=== PATIENT | male | born 1970 | race Caucasian/White ===

== ENCOUNTER 2024-01-15 09:08 | Day surgery (SDC) | payer OTHER ==
[2024-01-10 12:24] LABS: BASOPHILS # (AUTO) 0.1 X10'3 (0-0.2); EOSINOPHILS # (AUTO) 0.1 X10'3 (0-0.9); EOSINOPHILS % (AUTO) 2.4 % (0-6); LYMPHOCYTES # (AUTO) 1.4 X10'3 (1.1-4.8); LYMPHOCYTES % (AUTO) 22.6 % (21-51); MEAN CORPUSCULAR HEMOGLOBIN 24.4 PG (27.0-31.0); MEAN CORPUSCULAR HGB CONC 31.6 g/dL (33.0-36.5); MEAN CORPUSCULAR VOLUME 77.2 FL (78-98); MEAN PLATELET VOLUME 8.8 FL (7.4-10.4); MONOCYTES # (AUTO) 0.8 X10'3 (0-0.9); MONOCYTES % (AUTO) 12.3 % (2-12); NEUTROPHILS # (AUTO) 3.9 X10'3 (1.8-7.7); NEUTROPHILS % (AUTO) 61.7 % (42-75); PRE OP HEMATOCRIT 46.3 % (42.0-52.0); PRE OP HEMOGLOBIN 14.6 g/dL (14.0-17.9); PRE OP PLATELET COUNT 209 X10'3 (140-440); PRE OP WHITE BLOOD COUNT 6.3 10'3 (4.8-10.8); RED CELL DISTRIBUTION WIDTH 17.8 % (11.5-14.5)
[2024-01-10 12:35] LABS: ALBUMIN 3.7 G/DL (3.4-5.0); ALKALINE PHOSPHATASE 81 IU/L (46-116); BLOOD UREA NITROGEN 14 MG/DL (7-18); BUN/CREATININE RATIO 13.9 (10.0-20.0); CHLORIDE 105 MMOL/L (99-107); CREATININE 1.01 MG/DL (0.60-1.10); PRE OP ALT 36 U/L (30-65); PRE OP ANION GAP 7 (8-16); PRE OP AST 19 U/L (10-37); PRE OP BILIRUB, TOTAL 0.5 MG/DL (0.0-1.0); PRE OP GLUCOSE 111 MG/DL (70-104); PRE OP POTASSIUM 4.1 MMOL/L (3.4-5.1); PRE OP SODIUM 139 MMOL/L (135-145); TOTAL CARBON DIOXIDE 27.2 MMOL/L (24-32); TOTAL PROTEIN 7.5 G/DL (6.4-8.2); eGFR 77 ML/MIN
[~2024-01-15] VITALS: Ht 190.5 cm; Wt 160.8 kg
[2024-01-15] VITALS (8 sets, daily range): BP systolic 108–123; BP diastolic 58–92; PULSE 70–85; RESP 9–20; TEMP 97.6; O2SAT 94–97
[~2024-01-15 09:08] MED LIST: APIX5TAB3 PO; CARI1.5C PO; DESV100T6 PO; DILT-36 PO; LIFI1DRO EACHEYE; TADA5TAB13 PO; TIZA-189 PO; TRAZ-256 PO; VALA100031 PO
[2024-01-15] MEDS ORDERED: proCHLORperazine 10 MG/2 ml inj IV PRN (10:10)
[2024-01-15] MEDS ORDERED: meperidine/PF 25mg/ml syringe IV PRN ×3 (10:10)
[2024-01-15] MEDS ORDERED: ringers solution, lacted 1,000 ML IV SCH (10:10)
[2024-01-15] MEDS ORDERED: ondansetron/PF 4mg/2ml inj IV PRN (10:10)
[2024-01-15] MEDS ORDERED: HYDROmorphone/PF 0.2 MG/ML SYRINGE IV PRN ×2 (10:10)
[2024-01-15] MEDS ORDERED: acetaminophen 1,000mg/100ml IV 100 ML IV ONE (10:10)
[2024-01-15] MEDS: famotidine 20mg tablet PO ONE (10:14)
[2024-01-15] MEDS: ceFAZolin 3,000 MG in NS 100ml IVPB x1 dose post-op IV ONE (10:15)
[2024-01-15] MEDS: ringers solution, lacted 1,000 ML IV SCH (10:15)
[2024-01-15] MEDS: BUPIVAcaine/PF 2.5mg/ml (0.25%) 10ml vial ONE (10:21)
[2024-01-15] MEDS: LIDOcaine 2% (20mg/ml) 5ml vial ONE (10:21)
[2024-01-15] MEDS ORDERED: fentaNYL/PF 50MCG/1 ML 2ML syringe ONE (10:53)
[2024-01-15] MEDS ORDERED: propofol inj 20 ML IV ONE ×2 (11:01)
[2024-01-15] MEDS ORDERED: midazolam 1 mg/ML 2ml injection ONE (11:01)
== END 2024-01-15 12:10 | disposition home or self-care (01) ==
LOC: PAS 09:08
PROVIDERS: ATTEND Orthopaedic Surgery Hand Surgery
DX: G56.02 Carpal tunnel syndrome, left upper limb (principal); I48.91 Unspecified atrial fibrillation; E66.9 Obesity, unspecified; F41.9 Anxiety disorder, unspecified; F32.A Depression, unspecified; I25.2 Old myocardial infarction; I20.9 Angina pectoris, unspecified; Z79.01 Long term (current) use of anticoagulants; Z79.899 Other long term (current) drug therapy; Z98.49 Cataract extraction status, unspecified eye; Z98.84 Bariatric surgery status; Z98.890 Other specified postprocedural states; Z68.41 Body mass index [BMI] 40.0-44.9, adult; Z88.5 Allergy status to narcotic agent
CPT/HCPCS: 29848; 36415; 80053; 82948; 85025; J0690; J2250; J2704; J3010; J3490; J7030; J7120; Z7506; Z7512; A4215; A6449; A7000

== ENCOUNTER 2024-02-19 05:59 | Day surgery (SDC) | payer OTHER ==
[2024-02-12 11:46] LABS: BASOPHILS # (AUTO) 0.1 X10'3 (0-0.2); BASOPHILS % (AUTO) 1.2 % (0-1); EOSINOPHILS # (AUTO) 0.1 X10'3 (0-0.9); EOSINOPHILS % (AUTO) 1.7 % (0-6); LYMPHOCYTES # (AUTO) 1.6 X10'3 (1.1-4.8); LYMPHOCYTES % (AUTO) 33.6 % (21-51); MEAN CORPUSCULAR HEMOGLOBIN 25.2 PG (27.0-31.0); MEAN CORPUSCULAR HGB CONC 31.8 g/dL (33.0-36.5); MEAN CORPUSCULAR VOLUME 79.3 FL (78-98); MEAN PLATELET VOLUME 9.1 FL (7.4-10.4); MONOCYTES # (AUTO) 0.6 X10'3 (0-0.9); MONOCYTES % (AUTO) 12.5 % (2-12); NEUTROPHILS # (AUTO) 2.4 X10'3 (1.8-7.7); PRE OP HEMATOCRIT 47.8 % (42.0-52.0); PRE OP HEMOGLOBIN 15.2 g/dL (14.0-17.9); PRE OP PLATELET COUNT 176 X10'3 (140-440); PRE OP WHITE BLOOD COUNT 4.6 10'3 (4.8-10.8); RED BLOOD COUNT 6.03 X10'6 (4.70-6.10); RED CELL DISTRIBUTION WIDTH 21.7 % (11.5-14.5)
[2024-02-12 12:02] LABS: ALBUMIN 3.8 G/DL (3.4-5.0); ALBUMIN/GLOBULIN RATIO 1.1 (1.1-1.5); ALKALINE PHOSPHATASE 61 IU/L (46-116); BLOOD UREA NITROGEN 12 MG/DL (7-18); BUN/CREATININE RATIO 10.5 (10.0-20.0); CHLORIDE 106 MMOL/L (99-107); CREATININE 1.14 MG/DL (0.60-1.10); PRE OP ALT 29 U/L (30-65); PRE OP ANION GAP 8 (8-16); PRE OP AST 23 U/L (10-37); PRE OP BILIRUB, TOTAL 0.8 MG/DL (0.0-1.0); PRE OP GLUCOSE 98 MG/DL (70-104); PRE OP POTASSIUM 3.8 MMOL/L (3.4-5.1); PRE OP SODIUM 140 MMOL/L (135-145); TOTAL CARBON DIOXIDE 26.4 MMOL/L (24-32); TOTAL PROTEIN 7.3 G/DL (6.4-8.2); eGFR 67 ML/MIN
[2024-02-12 12:06] LABS: PLATELET ESTIMATE NORMAL
[2024-02-12 12:07] LABS: ANISOCYTOSIS 3+; MICROCYTOSIS 1+
[~2024-02-19] VITALS: Ht 190.5 cm; Wt 154.9 kg
[2024-02-19] VITALS (13 sets, daily range): BP systolic 113–148; BP diastolic 81–102; PULSE 73–94; RESP 9–16; TEMP 97.9; O2SAT 94–98
[2024-02-19] MEDS: cefazolin 2gm/D5W 100mL 100 ML IV ONE (05:30)
[2024-02-19] MEDS: famotidine 20mg tablet PO ONE (07:04)
[2024-02-19] MEDS: ringers solution, lacted 1,000 ML IV SCH (07:04)
[2024-02-19] MEDS ORDERED: ondansetron/PF 4mg/2ml inj IV PRN (07:15)
[2024-02-19] MEDS ORDERED: fentaNYL/PF 50MCG/1 ML 2ML syringe IV PRN ×2 (07:15)
[2024-02-19] MEDS ORDERED: ringers solution, lacted 1,000 ML IV SCH (07:15)
[2024-02-19] MEDS ORDERED: labetalol 20mg/4ml (5mg/ml) syringe IV PRN (07:15)
[2024-02-19] MEDS ORDERED: propofol 10mg/ml 20ml vial IV ONE (08:25)
[2024-02-19] MEDS ORDERED: fentaNYL/PF 50MCG/1 ML 2ML syringe ONE (08:33)
[2024-02-19] MEDS ORDERED: MIDAZolam 1 MG/ML 5ML VIAL ONE (08:33)
[2024-02-19] MEDS: BUPIVAcaine/PF 2.5mg/ml (0.25%) 10ml vial ONE (14:28)
[2024-02-19] MEDS: LIDOcaine 2% (20mg/ml) 5ml vial ONE (14:29)
== END 2024-02-19 10:45 | disposition home or self-care (01) ==
LOC: PAS 05:59
PROVIDERS: ATTEND Orthopaedic Surgery Hand Surgery
DX: G56.01 Carpal tunnel syndrome, right upper limb (principal); I10 Essential (primary) hypertension; E66.9 Obesity, unspecified; I48.91 Unspecified atrial fibrillation; F41.9 Anxiety disorder, unspecified; F32.A Depression, unspecified; Z79.01 Long term (current) use of anticoagulants; Z79.899 Other long term (current) drug therapy; Z98.41 Cataract extraction status, right eye; Z98.84 Bariatric surgery status; Z98.42 Cataract extraction status, left eye; Z98.890 Other specified postprocedural states; Z68.41 Body mass index [BMI] 40.0-44.9, adult; Z88.5 Allergy status to narcotic agent
CPT/HCPCS: 29848; 80053; 82948; 85025; J0690; J2250; J2704; J3010; J3490; J7030; J7120; Z7506; Z7512; 85008; A4215; A6449; A7000